=== PATIENT | female | born 1950 | race Caucasian/White ===

== ENCOUNTER 2019-05-12 08:34 | Emergency (ER) | payer OTHER ==
[~2019-05-12] VITALS: Ht 175.3 cm; Wt 103.1 kg
[2019-05-12] MEDS ORDERED: HYDR12.517 PO (08:57)
[2019-05-12] MEDS ORDERED: SULF1TAB24 PO (08:57)
[2019-05-12] MEDS ORDERED: ASPI-496 PO (08:57)
[2019-05-12] MEDS ORDERED: CETI5TAB3 PO (08:57)
--- NOTE | 2019-05-12 08:58 | NUR ---
"I THINK I HAVE A SPIDER BITE ON RIGHT UPPER BACK FROM SAT AM", REDNESS, PAIN, SWELLING; SEEN BY PCP IN [place]- NO IMPROVEMENT WITH BACTRIM. FEVER OF 99.3 OVERALL DOES NOT APPEAR TOXIC, HOWEVER, REPORTS WOUND QUITE A BIT WORSE. ROUGHLY 9 INCH TRIAGULAR/MAROON COLORED SKIN LESION NOTED. HOT TO TOUCH & QUITE HARD PROVIDER AT BEDSIDE ULTRASOUNDING WOUND. PER PROVIDER TO DEFER PIV-PLAN TO [facility] MEDICATIONS
[2019-05-12] MEDS ORDERED: NEOSPORIN OINT. PKT 1 PACKET ONE (09:09)
[2019-05-12] MEDS ORDERED: LIDOCAINE-MPF 1%, 5ML ONE (09:09)
[2019-05-12] MEDS ORDERED: LIDOCAINE-MPF 1%, 2ML ONE (09:27)
[2019-05-12] MEDS ORDERED: CEFTRIAXONE 1,000 MG ONE (09:27)
[2019-05-12] MEDS ORDERED: CEFTRIAXONE 1,000 MG IM ONE (09:30)
[2019-05-12] MEDS ORDERED: LIDOCAINE-MPF 1%, 5ML INFIL ONE (09:30)
--- NOTE | 2019-05-12 09:30 | NUR ---
LESION LANCED THEN PACKED BY PROVIDER AFTER LOCAL ANESTHESIA BY PROVIDER WOUND CULTURED-SENT TO LAB DRESSED BACITRACIN THEN W/ DRY 4x4 DRESSING MEDICATED PER EMAR WITH ROCEPHIN IM MIXED WITH LIDOCAINE TO WATCH PATIENT FOR 15 MINUTES REPORTED ALLERGY TO AMOXICILLIN
[2019-05-12] MEDS ORDERED: LIDOCAINE 1%, 2ML INFIL ONE (10:00)
[2019-05-12] MEDS ORDERED: NEOSPORIN OINT. PKT 1 PACKET TP ONE (10:00)
--- NOTE | 2019-05-12 10:27 | NUR ---
NO REACTION NOTED REVIEWED WOUND CARE REMINDED TO RETURN FOR PACKING REMOVAL IN 2 DAYS
[2019-05-12 10:31] VITALS: BP 124/77
== END 2019-05-12 10:41 | disposition home or self-care (01) ==
LOC: ED 10:38
DX: L02.212 Cutaneous abscess of back [any part, except buttock and flank] (principal)
CPT/HCPCS: 10060; 87070; 87077; 87186; 87205; 96372; 99284; J0696; J3490

== ENCOUNTER 2019-05-14 08:15 | Emergency (ER) | payer MEDICARE, OTHER ==
[~2019-05-14] VITALS: Ht 175.3 cm; Wt 101.0 kg
[~2019-05-14 08:15] MED LIST: ASPI-496 PO; CETI5TAB3 PO; HYDR12.517 PO; SULF1TAB24 PO
[2019-05-14 08:18] VITALS: BP 171/53
--- NOTE | 2019-05-14 08:42 | NUR ---
TO ROOM FROM LOBBY. NAD.
== END 2019-05-14 09:31 | disposition home or self-care (01) ==
LOC: ED 08:57
DX: Z48.01 Encounter for change or removal of surgical wound dressing (principal)
CPT/HCPCS: 99282; 99283

== ENCOUNTER 2019-05-16 10:02 | Emergency (ER) | payer MEDICARE ==
[~2019-05-16] VITALS: Ht 175.3 cm; Wt 100.9 kg
[2019-05-16 10:16] VITALS: BP 157/88
== END 2019-05-16 10:57 | disposition home or self-care (01) ==
LOC: ED 10:40
DX: Z48.01 Encounter for change or removal of surgical wound dressing (principal)
CPT/HCPCS: 99281